=== PATIENT | male | born 1950 | race Two or more races ===

== ENCOUNTER 2023-10-16 05:07 | Inpatient (IN) | payer MEDICARE, OTHER ==
[~2023-10-16] VITALS: Ht 177.8 cm; Wt 98.1 kg
[2023-10-16 05:49] VITALS: PULSE 111; RESP 16; O2SAT 93
[2023-10-16 06:12] LABS: Basophils # (auto) 0 10 ^3/uL (0-0.2); Basophils % (auto) 0.2 % (0.0-2.0); Eosinophils # (auto) 0 10 ^3/uL (0-0.8); Eosinophils % (auto) 0.4 % (0.0-7.0); Lymphocytes # (auto) 0.5 10 ^3/uL (0.4-5.4); Lymphocytes % (auto) 6.1 % (10.0-50.0); Mean Corpuscular Hemoglobin 30.4 pg (28.0-32.0); Mean Corpuscular Hgb Conc. 33.4 g/dL (32.0-36.0); Mean Corpuscular Volume 90.9 fL (80.0-100.0); Monocytes # (auto) 0.4 10 ^3/uL (0-1.3); Monocytes % (auto) 5.5 % (0.0-12.0); Neutrophils % (auto) 87.8 % (37.0-80.0); Red Blood Cells 4.96 10^6/uL (4.5-5.90); Red Cell Distribution Width 14.4 % (11.8-14.3)
[2023-10-16 06:26] LABS: Alanine Aminotransferase 22 U/L (7-40); Albumin 4.3 g/dL (3.2-4.8); Alkaline Phosphatase 60 U/L (46-116); Anion Gap 7 (5-15); Aspartate Aminotransferase 20 U/L (13-40); BUN/Creatinine Ratio 13.2 (10.0-20.0); Blood Urea Nitrogen 12 mg/dL (9-23); Calcium 9.7 mg/dL (8.7-10.4); Carbon Dioxide 21 mmol/L (20-30); Chloride 110 mmol/L (98-107); Glucose 142 mg/dL (74-106); Magnesium 1.6 mg/dL (1.6-2.6); Potassium 3.9 mmol/L (3.5-5.1); Sodium 138 mmol/L (136-145)
[2023-10-16 06:27] LABS: Bilirubin, Total 1.1 mg/dL (0.2-1.0); Total Protein 6.8 g/dL (5.7-8.2)
[2023-10-16 06:36] LABS: INR 1.06 (0.9-1.15); Partial Thromboplastin Time 27.1 SEC (24.5-34.5); Prothrombin Time 11.1 sec (9.3-11.8)
[2023-10-16] MEDS ORDERED: dilTIAZem 25 MG/5 ML VIAL IV ONE (06:45)
[2023-10-16 07:54] VITALS: PULSE 98; RESP 15; O2SAT 96
[2023-10-16] MEDS ORDERED: FUROSEMIDE 40 MG/4 ML VIAL IV ONE (08:15)
[2023-10-16 08:28] LABS: Urine Bacteria FEW /hpf (None Seen); Urine Blood TRACE /uL (Negative); Urine Clarity Clear (Clear); Urine Color Yellow (Yellow); Urine Mucus FEW (None Seen); Urine Protein, UAD TRACE (Negative); Urine Specific Gravity 1.019 (1.001-1.035); Urine Urobilinogen Normal (Negative); Urine WBC 9 /hpf (0 - 3); Urine pH 5.5 (5.0-8.0)
[2023-10-16] MEDS ORDERED: ONDANSETRON HCL 4 MG/2 ML VIAL IV PRN (08:45)
[2023-10-16] MEDS ORDERED: NITROGLYCERIN 0.4 MG SL TAB SL PRN (08:45)
[2023-10-16] MEDS ORDERED: HYDROcodone-ACET 5/325MG TAB PO PRN (08:45)
[2023-10-16] MEDS ORDERED: MORPHINE SULFATE INJ 2 MG/ml SYRG IV PRN ×2 (08:45)
[2023-10-16] MEDS ORDERED: AMIODARONE BOLUS KIT 100 ML IV ONE (09:15)
[2023-10-16 09:16] LABS: Amphetamine Screen, Urine Neg (NEGATIVE); Barbiturate Scree,Urine Neg (NEGATIVE); Benzodiazephine Screen, Urine Neg (NEGATIVE); Cocaine Screen, Urine Neg (NEGATIVE)
[2023-10-16 09:17] LABS: Cannabinoid Screen, Urine Neg (NEGATIVE); Opiate Scree,Urine Neg (NEGATIVE); Phencyclidine Screen, Urine Neg (NEGATIVE)
[2023-10-16] MEDS ORDERED: AMIODARONE 450mg/250ml AE 250 ML IV SCH (09:30)
[2023-10-16] MEDS ORDERED: hydrALAZINE HCL 20 MG/ML VL IV PRN (09:30)
[2023-10-16 09:43] LABS: Triglycerides 116 mg/dL (< 150)
[2023-10-16 09:44] LABS: LDL Cholesterol 66 mg/dL (< 100)
[2023-10-16 09:45] LABS: Cholesterol 124 mg/dL (< 200); HDL Cholesterol 41 mg/dL (40-59)
[2023-10-16] MEDS ORDERED: LISINOPRIL 10 MG TAB PO SCH (10:00)
[2023-10-16] MEDS ORDERED: ENOXAPARIN SOD 40 MG/0.4 ML SYRINGE SC SCH (10:00)
[2023-10-16] MEDS: ASPirin 81 mg TAB PO SCH (10:42)
[2023-10-16] MEDS: cefTRIAXone 1GM/50ML D5W 50 ML IV SCH (10:43)
[2023-10-16] MEDS ORDERED: MAGNESIUM SULFATE 1GM/100ML 100 ML IV ONE (11:00)
[2023-10-16] MEDS ORDERED: MAGNESIUM OXIDE 400 MG TAB PO ONE (11:45)
[2023-10-16] MEDS: SODIUM CHLORIDE 0.9% 1,000 ML IV SCH ×2 (12:40→23:51)
[2023-10-16] MEDS: ACETAMINOPHEN 325 MG TAB PO PRN (15:27)
[2023-10-16] MEDS: AMIODARONE 450mg/250ml AE 250 ML IV SCH ×2 (15:57→22:07)
[2023-10-16 17:34] LABS: COVID19 ANTIGEN SOFIA FIA POSITIVE (NEGATIVE)
[2023-10-16 20:15] VITALS: PULSE 107; RESP 22; O2SAT 94
[2023-10-16] MEDS ORDERED: ENOXAPARIN SOD 100 MG/1 ML SYRINGE SC SCH (22:00)
[2023-10-16] MEDS: ATORVASTATIN 20 MG TAB PO SCH (22:53)
[2023-10-16 23:05] VITALS: BP 151/92; PULSE 112; RESP 19; TEMP 99; O2SAT 91
[2023-10-17] VITALS (10 sets, daily range): BP systolic 130–162; BP diastolic 75–90; PULSE 75–103; RESP 16–21; TEMP 37.1; O2SAT 94–97
[2023-10-17 06:56] LABS: Basophils # (auto) 0 10 ^3/uL (0-0.2); Basophils % (auto) 0.2 % (0.0-2.0); Eosinophils # (auto) 0 10 ^3/uL (0-0.8); Eosinophils % (auto) 0.1 % (0.0-7.0); Hematocrit 43.2 % (41.0-53.0); Hemoglobin 14.3 g/dL (13.5-17.5); Lymphocytes % (auto) 11.7 % (10.0-50.0); Mean Corpuscular Hemoglobin 30.6 pg (28.0-32.0); Mean Corpuscular Volume 92.6 fL (80.0-100.0); Monocytes # (auto) 0.9 10 ^3/uL (0-1.3); Neutrophils # (auto) 6.8 10 ^3/uL (1.6-8.6); Red Blood Cells 4.67 10^6/uL (4.5-5.90); Red Cell Distribution Width 14.6 % (11.8-14.3); White Blood Cell 8.7 10^3/uL (4.4-10.8)
[2023-10-17 07:02] LABS: Chloride 109 mmol/L (98-107); Potassium 3.9 mmol/L (3.5-5.1); Sodium 139 mmol/L (136-145)
[2023-10-17 07:03] LABS: Anion Gap 7 (5-15); Carbon Dioxide 23 mmol/L (20-30)
[2023-10-17 07:04] LABS: Calcium 9.4 mg/dL (8.5-10.1)
[2023-10-17 07:08] LABS: BUN/Creatinine Ratio 12.5 (10.0-20.0); Blood Urea Nitrogen 10 mg/dL (9-23); Glucose 128 mg/dL (74-106)
[2023-10-17] MEDS ORDERED: AMIODARONE HCL 200 MG TAB PO ONE (07:30)
[2023-10-17] MEDS: cefTRIAXone 1GM/50ML D5W 50 ML IV SCH (09:08)
[2023-10-17] MEDS: ASPirin 81 mg TAB PO SCH (09:08)
[2023-10-17] MEDS: APIXABAN 5 MG TAB PO SCH ×2 (09:09→21:18)
[2023-10-17] MEDS: METOPROLOL SUCCINATE XL 50 MG TAB PO SCH (09:10)
[2023-10-17] MEDS ORDERED: LISI-285 PO (12:18)
[2023-10-17] MEDS ORDERED: ASPI-543 PO (12:18)
[2023-10-17] MEDS ORDERED: ATOR10TA52 PO (12:18)
[2023-10-17] MEDS ORDERED: CHOL200064 PO (12:18)
[2023-10-17] MEDS: SODIUM CHLORIDE 0.9% 1,000 ML IV SCH (13:04)
[2023-10-17] MEDS: ALBUTEROL SULF HFA 90MCG INH 200DOSE IN SCH ×2 (14:00→21:20)
[2023-10-17 21:11] LABS: Rapid Influenza A Negative (Negative); Rapid Influenza B Negative (Negative)
[2023-10-17] MEDS: AMIODARONE HCL 200 MG TAB PO SCH (21:18)
[2023-10-17] MEDS: ATORVASTATIN 20 MG TAB PO SCH (21:18)
[2023-10-18] VITALS (11 sets, daily range): BP systolic 110–142; BP diastolic 59–98; PULSE 85–118; RESP 16–20; TEMP 36.8; O2SAT 94–100
[2023-10-18 06:30] LABS: Basophils # (auto) 0 10 ^3/uL (0-0.2); Basophils % (auto) 0.2 % (0.0-2.0); Eosinophils # (auto) 0 10 ^3/uL (0-0.8); Eosinophils % (auto) 0.1 % (0.0-7.0); Hematocrit 42.5 % (41.0-53.0); Hemoglobin 14.2 g/dL (13.5-17.5); Lymphocytes # (auto) 0.8 10 ^3/uL (0.4-5.4); Mean Corpuscular Hemoglobin 30.4 pg (28.0-32.0); Mean Corpuscular Hgb Conc. 33.4 g/dL (32.0-36.0); Mean Corpuscular Volume 91.2 fL (80.0-100.0); Monocytes # (auto) 0.8 10 ^3/uL (0-1.3); Monocytes % (auto) 9.1 % (0.0-12.0); Neutrophils # (auto) 7.4 10 ^3/uL (1.6-8.6); Neutrophils % (auto) 81.6 % (37.0-80.0); Nucleated Red Blood Cells % 0.1 %; Red Blood Cells 4.66 10^6/uL (4.5-5.90); Red Cell Distribution Width 14.4 % (11.8-14.3)
[2023-10-18] MEDS: ALBUTEROL SULF HFA 90MCG INH 200DOSE IN SCH ×3 (07:05→21:02)
[2023-10-18 08:22] LABS: Anion Gap 7 (5-15); BUN/Creatinine Ratio 12.8 (10.0-20.0); Blood Urea Nitrogen 10 mg/dL (9-23); Calcium 9.4 mg/dL (8.7-10.4); Carbon Dioxide 23 mmol/L (20-30); Chloride 107 mmol/L (98-107); Glucose 139 mg/dL (74-106); Magnesium 1.9 mg/dL (1.6-2.6); Potassium 3.8 mmol/L (3.5-5.1); Sodium 137 mmol/L (136-145)
[2023-10-18] MEDS: ASPirin 81 mg TAB PO SCH (11:05)
[2023-10-18] MEDS: APIXABAN 5 MG TAB PO SCH ×2 (11:05→21:00)
[2023-10-18] MEDS: AMIODARONE HCL 200 MG TAB PO SCH ×2 (11:05→21:00)
[2023-10-18] MEDS: METOPROLOL SUCCINATE XL 50 MG TAB PO SCH (11:07)
[2023-10-18] MEDS: cefTRIAXone 1GM/50ML D5W 50 ML IV SCH (11:11)
[2023-10-18] MEDS: ATORVASTATIN 20 MG TAB PO SCH (21:00)
[2023-10-18] MEDS: ACETAMINOPHEN 325 MG TAB PO PRN (21:01)
[2023-10-19 04:45] VITALS: BP 113/82; PULSE 91; RESP 19; TEMP 98.5; O2SAT 96
[2023-10-19 07:33] VITALS: PULSE 84; RESP 16; O2SAT 98
[2023-10-19] MEDS: ALBUTEROL SULF HFA 90MCG INH 200DOSE IN SCH (07:33)
[2023-10-19] MEDS ORDERED: BIOF500C2 PO (07:54)
[2023-10-19] MEDS ORDERED: CIPR-173 PO (07:54)
[2023-10-19] MEDS ORDERED: ZINC220C10 PO (07:54)
[2023-10-19] MEDS ORDERED: AMIO200T33 PO (07:56)
[2023-10-19] MEDS ORDERED: APIX5TAB PO (07:56)
[2023-10-19 08:00] VITALS: PULSE 88; PULSE 92; RESP 18
[2023-10-19] MEDS: cefTRIAXone 1GM/50ML D5W 50 ML IV SCH (09:06)
[2023-10-19] MEDS: ASPirin 81 mg TAB PO SCH (09:09)
[2023-10-19] MEDS: APIXABAN 5 MG TAB PO SCH (09:09)
[2023-10-19] MEDS: AMIODARONE HCL 200 MG TAB PO SCH (09:09)
[2023-10-19] MEDS: METOPROLOL SUCCINATE XL 50 MG TAB PO SCH (09:09)
[2023-10-19 09:18] VITALS: BP 126/90; PULSE 88; RESP 18; TEMP 98.9; O2SAT 100
[2023-10-19] MEDS: ACETAMINOPHEN 325 MG TAB PO PRN (09:26)
[2023-10-19 13:02] VITALS: BP 116/76; PULSE 104; RESP 17; TEMP 98; O2SAT 96
== END 2023-10-19 12:52 | disposition home health service (06) | DRG 308 ==
LOC: ER 05:07 → EDBD 05:07 → TELE 08:46 → TELE-CENTR 22:13
PROVIDERS: ADMIT Internal Medicine; ATTEND Internal Medicine
DX: I48.91 Unspecified atrial fibrillation (principal); U07.1 COVID-19; N39.0 Urinary tract infection, site not specified; E66.9 Obesity, unspecified; E78.5 Hyperlipidemia, unspecified; I11.0 Hypertensive heart disease with heart failure; M17.11 Unilateral primary osteoarthritis, right knee; R25.1 Tremor, unspecified; I50.9 Heart failure, unspecified; B96.20 Unspecified Escherichia coli [E. coli] as the cause of diseases classified elsewhere; Z83.3 Family history of diabetes mellitus; Z68.31 Body mass index [BMI] 31.0-31.9, adult
CPT/HCPCS: 36415; 70450; 71045; 72131; 72192; 73560; 80048; 80053; 80061; 80307; 81001; 83036; 83735; 83880; 84443; 84484; 85025; 85610; 85730; 87086; 87088; 87186; 87426; 87804; 93005; 93306; 94640; 97110; 97116; 97163; 97530; 99291; G0378; J0696